=== PATIENT | female | born 1955 | race Caucasian/White ===

== ENCOUNTER 2018-04-02 09:16 | Day surgery (SDC) | payer BC, OTHER ==
[2018-03-28 16:36] VITALS: BMI 19.7
[2018-04-02 09:34] VITALS: TEMP 97.6
[2018-04-02] MEDS ORDERED: PROPOFOL 20 ML ONE ×2 (10:08)
[2018-04-02] MEDS ORDERED: LIDOCAINE HCL/PF 2% SDV 5ML VIAL ONE (10:09)
[2018-04-02 12:58] VITALS: BP 139/72; PULSE 52
--- NOTE | 2018-04-03 16:07 | PATH ---
Surgical Pathology Report Patient Name: MARYLU ANGULO [facility]. Rec. #: [id number] /Age/Gender: 1955 (Age: 62) / F Account: [id number] Location: [facility]-ENDOSCOPY Taken: 04/02/2018 Received: 04/02/2018 Reported: 04/03/2018 Physicians: Raji Vaughn M.D. Specimen(s) Received RIGHT COLON Clinical History History of polyps Postoperative diagnosis: Polyp Final Diagnosis COLON, RIGHT, BIOPSY: TUBULAR ADENOMA. Electronically Signed Sraah Eaton M.D. Gross Description Received in formalin, labeled "right colon" is a [place], irregular portion of soft tissue measuring 0.2 cm. in greatest dimension. The specimen is submitted in toto in one cassette. 04/02/201804/02/2018
== END 2018-04-02 11:40 | disposition home or self-care (01) ==
LOC: FASU-ENDO 09:16
PROVIDERS: ATTEND Internal Medicine Gastroenterology
PROC: 0DBK8ZX Excision of Ascending Colon, Via Natural or Artificial Opening Endoscopic, Diagnostic (ICD-10-PCS; principal; 2018-04-02 10:24)
DX: Z83.71 Family history of colonic polyps (principal); D12.2 Benign neoplasm of ascending colon
CPT/HCPCS: 88305-TC

== ENCOUNTER 2023-08-07 07:59 | Day surgery (SDC) | payer OTHER, BC ==
[2023-08-03 15:08] VITALS: BMI 20.1
[2023-08-07 08:22] VITALS: RESP 16
[2023-08-07 09:20] VITALS: TEMP 97.5
[2023-08-07 09:32] VITALS: BP 116/64; PULSE 57
== END 2023-08-07 09:55 | disposition home or self-care (01) ==
LOC: FASU-ENDO 07:59
PROVIDERS: ATTEND Internal Medicine Gastroenterology
PROC: 0DJD8ZZ Inspection of Lower Intestinal Tract, Via Natural or Artificial Opening Endoscopic (ICD-10-PCS; principal; 2023-08-07 08:47)
DX: Z12.11 Encounter for screening for malignant neoplasm of colon (principal); Z86.010 Personal history of colon polyps; Z83.719 Family history of colon polyps, unspecified